=== PATIENT | female | born 1990 | race Two or more races ===

== ENCOUNTER 2018-12-20 22:08 | Observation (INO) | payer MEDICAID ==
[2018-12-20 22:34] LABS: BILIRUBIN,URINE NEGATIVE (NEG); CLARITY,URINE CLEAR; COLOR,URINE YELLOW; NITRITE,URINE NEGATIVE (NEG); PH,URINE 6.5; PROTEIN,URINE NEGATIVE (NEG-TRACE); UROBILINOGEN,URINE 0.2 mg/dL (0.2 mg/dL)
[2018-12-20 22:39] LABS: RBC,URINE TNTC /HPF (0-2); SQUAMOUS EPITHELIAL CELL,UR MOD /LPF
[2018-12-20 22:40] LABS: BACTERIA,URINE MODERATE /HPF (0-FEW)
[2018-12-21] MEDS: IV RINGERS,LACTATED 1000ML 1,000 ML IV SCH ×2 (02:26→04:04)
== END 2018-12-21 08:17 | disposition home or self-care (01) ==
LOC: 3 SO LND 22:08
PROVIDERS: ADMIT Obstetrics & Gynecology; ATTEND Obstetrics & Gynecology
DX: O62.9 Abnormality of forces of labor, unspecified (principal); O46.93 Antepartum hemorrhage, unspecified, third trimester; Z3A.38 38 weeks gestation of pregnancy
CPT/HCPCS: 81001; 87086; G0378; G0379; J7120; 87186

== ENCOUNTER 2018-12-29 06:06 | Inpatient (IN) | payer MEDICAID ==
[~2018-12-29] VITALS: Ht 160 cm; Wt 66.2 kg
[2018-12-29] MEDS ORDERED: OXYTOCIN 30 UNIT/500 ML PREMIX 500 ML IV PRN ×3 (06:15→11:45)
[2018-12-29] MEDS ORDERED: NALBUPHINE 10 MG/ML AMPUL. IV PRN (06:15)
[2018-12-29] MEDS ORDERED: 0.9 % SODIUM CHLORIDE 10 ML DISP.SYRIN. IV PRN ×2 (06:15→11:45)
[2018-12-29] MEDS ORDERED: ACETAMINOPHEN 325 MG TABLET. PO PRN ×2 (06:15→11:45)
[2018-12-29] MEDS ORDERED: LIDOCAINE 1% PF 30 ML VIAL. INJ PRN (06:15)
[2018-12-29] MEDS ORDERED: CITRIC ACID/SODIUM CITRATE 30 ML SOLUTION. PO PRN (06:15)
[2018-12-29] MEDS ORDERED: ONDANSETRON PF 4 MG/2 ML VIAL. IV PRN (06:15)
[2018-12-29] MEDS ORDERED: TERBUTALINE 1 MG/ML VIAL. SQ PRN (06:15)
[2018-12-29] MEDS ORDERED: MAG HYDROX/ALUMINUM HYD/SIMETH 30 ML ORAL.SUSP PO PRN ×2 (06:15→11:45)
[2018-12-29] MEDS ORDERED: fentaNYL PF VIAL 100 MCG/2 ML VIAL IV PRN ×3 (06:15)
[2018-12-29] MEDS ORDERED: PENICILLIN G K 5,000,000 UNIT in IV DEXTROSE 5% 100ML 100 ML IV ONE (06:30)
[2018-12-29 06:38] LABS: BILIRUBIN,URINE NEGATIVE (NEG); CLARITY,URINE CLEAR; COLOR,URINE YELLOW; NITRITE,URINE NEGATIVE (NEG); PROTEIN,URINE NEGATIVE (NEG-TRACE); UROBILINOGEN,URINE 0.2 mg/dL (0.2 mg/dL)
[2018-12-29] MEDS: IV RINGERS,LACTATED 1000ML 1,000 ML IV SCH ×2 (06:49→09:14)
[2018-12-29 06:50] LABS: BACTERIA,URINE MANY /HPF (0-FEW); SQUAMOUS EPITHELIAL CELL,UR MANY /LPF; WBC,URINE 20-40 /HPF (0-4)
[2018-12-29 07:04] LABS: BASO # 0.1 x10^3/uL (0.0-0.2); BASO % 1 % (0-3); EOS # 0.1 x10^3/uL (0.0-0.7); EOS % 1 % (0-3); HEMATOCRIT 37.3 % (36.0-47.0); HEMOGLOBIN 12.6 g/dL (12.0-15.5); LYMPH # 2.4 x10^3/uL (1.0-4.8); LYMPH % 22 % (24-48); MEAN CORPUSCULAR HEMOGLOBIN 29 pg (25-35); MEAN CORPUSCULAR HGB CONC 34 g/dL (31-37); MEAN CORPUSCULAR VOLUME 85 fL (79-100); MONO # 0.9 x10^3/uL (0.0-1.1); MONO % 8 % (0-9); NEUT # 7.5 x10^3/uL (1.8-7.7); NEUT % 68 % (31-73); PLATELET COUNT 212 x10^3/uL (140-400); RED BLOOD COUNT 4.37 x10^6/uL (3.50-5.40); RED CELL DISTRIBUTION WIDTH 15.7 % (11.5-14.5)
--- NOTE | 2018-12-29 09:16 | PDOC1 ---
OB - History Hx of Present Care: Good Care Ultrasounds: Normal mid trimester US Obstetrical Complications: None Medical Complications: None Past Family/Social History * Past Medical, Surgical, Family and Obstetric Histories reviewed from chart. Rubella: Immune RPR/VDRL: Negative GBS Status: Positive HBsAG: Negative OB - Chief Complaint & HPI Date of Admission: Date of Admission: Dec 29, 2018 at 06:06 Chief Complaint/History : 2 Para: 1 EGA: 39 Reason for admission: induction of labor Indication for induction: maternal distance Admission Nurse Assessment Rev: Yes OB - Admission Exam Physical Exam HEENT: Normal Heart: Regular Rate Lungs: Crackles Abdomen: Gravid, Non tender, Soft Extremities: Edema Reflexes: Normal Cervical Dilatation: 3cm Effacement: 75% Station: -3 Membranes: Intact Heart Rate: Normal Accelerations: Accelerations Present Decelerations: No decelerations Contractions on Admission: >10 Minutes Apart Intensity: Mild Text A: 39 wks IUP GBS positive Previous c/s desires P: Admit IOL pitocin. Start Pen G prophylaxis. BEATRICE PRICE Jr, MD Dec 29, 2018 09:16
[2018-12-29] MEDS ORDERED: L&D EPIDURAL SYRINGE 50 ML ONE (09:50)
[2018-12-29] MEDS ORDERED: ROPIVacaine 0.2% PF 10 ML VIAL. ONE ×2 (09:50→10:00)
[2018-12-29] MEDS ORDERED: L&D EPIDURAL 50 ML SYRINGE. ONE (10:00)
[2018-12-29] MEDS ORDERED: IV RINGERS,LACTATED 1000ML 1,000 ML IV SCH (10:12)
[2018-12-29] MEDS ORDERED: ROPIVacaine 0.2% IN 0.9%NACL PF 40 MG/20 ML DISP.SYRIN. EPID PRN (10:15)
[2018-12-29] MEDS ORDERED: NALOXONE 0.4 MG/ML VIAL. IV PRN (10:15)
[2018-12-29] MEDS ORDERED: L&D EPIDURAL SYRINGE 50 ML EPID PRN (10:15)
[2018-12-29] MEDS ORDERED: PENICILLIN G K 2,500,000 UNIT in IV DEXTROSE 5% 50 ML IV SCH (10:30)
--- NOTE | 2018-12-29 11:37 | PDOC ---
VAGINAL DELIVERY DATE DATE: 12/29/18 TIME: 11:36 : 2 Para: 2 EGA: 39 VAGINAL DELIVERY: VTX VACCUM ASSISTED: No PLACENTA: Spontaneous 8/9 SEX: Female WEIGHT Weight [6 lbs. 13 oz ] Nuchal Cord: Yes, Times 1 Amniotic Fluid: Clear PAIN: Epidural EPISIOTOMY: No EXTENSION: Yes (2nd degree midline laceration) REPAIRED WITH 2-0 vicryl EBL 300 ml COMPLICATIONS none CONDITION pt. stable Signs of Intrauterine Infectio: None Shoulder Dystocia: No BEATRICE PRICE Jr, MD Dec 29, 2018 11:37
[2018-12-29] MEDS ORDERED: BENZOCAINE 20% TOPICAL AEROSOL SPRAY 57GM CAN. TP PRN (11:45)
[2018-12-29] MEDS ORDERED: MMR per PROTOCOL. MC PRN (11:45)
[2018-12-29] MEDS ORDERED: PHENYLEPH/MINERAL OIL/PETROLAT RECTAL OINTMENT TUBE. RC PRN (11:45)
[2018-12-29] MEDS ORDERED: DOCUSATE SODIUM 100 MG CAPSULE. PO PRN (11:45)
[2018-12-29] MEDS ORDERED: oxyCODONE/APAP 5/325 1 TAB TABLET PO PRN (11:45)
[2018-12-29] MEDS ORDERED: IBUPROFEN 400 MG TABLET. PO PRN (11:45)
[2018-12-29] MEDS ORDERED: diphenhydrAMINE HCL 25 MG CAPSULE PO PRN (11:45)
[2018-12-29] MEDS ORDERED: SIMETHICONE 80 MG TAB.CHEW PO PRN (11:45)
[2018-12-29] MEDS ORDERED: HYDROCORTISONE 1% TOPICAL OINTMENT 30GM TUBE. TP PRN (11:45)
[2018-12-29] MEDS ORDERED: MAGNESIUM HYDROXIDE 2,400 MG/30 ML ORAL.SUSP. PO PRN (11:45)
[2018-12-29] MEDS ORDERED: ZOLPIDEM 5 MG TABLET. PO PRN (11:45)
[2018-12-29] MEDS: IBUPROFEN 400 MG TABLET. PO PRN (14:02)
[2018-12-29 15:07] VITALS: BP 116/72
[2018-12-29] MEDS ORDERED: DIPHTH,PERTUSS(ACELL),TET TOX 0.5 ML DISP.SYRIN. VAX IM ONE (16:30)
[2018-12-29 17:07] VITALS: BP 110/68
[2018-12-29] MEDS ORDERED: BENZOCAINE/MENTHOL LOZENGE. PO PRN (21:00)
[2018-12-29 21:05] VITALS: BP 105/75
[2018-12-30] MEDS: IBUPROFEN 400 MG TABLET. PO PRN ×3 (00:51→19:46)
[2018-12-30 01:05] VITALS: BP 108/70
[2018-12-30 05:11] LABS: BASO # 0.1 x10^3/uL (0.0-0.2); BASO % 1 % (0-3); EOS # 0.1 x10^3/uL (0.0-0.7); EOS % 1 % (0-3); HEMATOCRIT 35.8 % (36.0-47.0); HEMOGLOBIN 11.9 g/dL (12.0-15.5); LYMPH # 3.5 x10^3/uL (1.0-4.8); LYMPH % 26 % (24-48); MEAN CORPUSCULAR HEMOGLOBIN 29 pg (25-35); MEAN CORPUSCULAR HGB CONC 33 g/dL (31-37); MEAN CORPUSCULAR VOLUME 87 fL (79-100); MONO # 1.1 x10^3/uL (0.0-1.1); MONO % 8 % (0-9); NEUT # 8.6 x10^3/uL (1.8-7.7); NEUT % 64 % (31-73); PLATELET COUNT 204 x10^3/uL (140-400); RED BLOOD COUNT 4.13 x10^6/uL (3.50-5.40); RED CELL DISTRIBUTION WIDTH 15.7 % (11.5-14.5); WHITE BLOOD COUNT 13.3 x10^3/uL (4.0-11.0)
[2018-12-30 06:26] VITALS: BP 106/71
[2018-12-30] MEDS ORDERED: FERROUS SULFATE 325 MG TABLET. PO SCH (08:00)
[2018-12-30] MEDS ORDERED: FLU VAX QS 2019-20 (36MOS+)/PF 0.5 ML SYRINGE. VAX IM ONE (10:00)
[2018-12-30 14:05] VITALS: BP 112/62
--- NOTE | 2018-12-30 15:58 | PDOC ---
OB Progress Note Date of Service 12/30/18 Time of Evaluation 1555 Notes Pt. feeling well. No complaints. Lab Laboratory Tests Test 12/29/18 06:28 12/29/18 06:47 12/30/18 04:00 Urine Collection Type Unknown Urine Color Yellow Urine Clarity Clear Urine pH 7.0 Urine Specific [place] 1.010 Urine Protein Negative mg/dL (NEG-TRACE) Urine Glucose (UA) Negative mg/dL (NEG) Urine Ketones (Stick) Negative mg/dL (NEG) Urine Blood Moderate (NEG) Urine Nitrite Negative (NEG) Urine Bilirubin Negative (NEG) Urine Urobilinogen Dipstick 0.2 mg/dL (0.2 mg/dL) Urine Leukocyte Esterase Moderate (NEG) Urine RBC 3-5 /HPF (0-2) Urine WBC 20-40 /HPF (0-4) Urine Squamous Epithelial Cells Many /LPF Urine Bacteria Many /HPF (0-FEW) Urine Mucus Slight /LPF White Blood Count 11.0 x10^3/uL (4.0-11.0) 13.3 x10^3/uL (4.0-11.0) Red Blood Count 4.37 x10^6/uL (3.50-5.40) 4.13 x10^6/uL (3.50-5.40) Hemoglobin 12.6 g/dL (12.0-15.5) 11.9 g/dL (12.0-15.5) Hematocrit 37.3 % (36.0-47.0) 35.8 % (36.0-47.0) Mean Corpuscular Volume 85 fL (79-100) 87 fL (79-100) Mean Corpuscular Hemoglobin 29 pg (25-35) 29 pg (25-35) Mean Corpuscular Hemoglobin Concent 34 g/dL (31-37) 33 g/dL (31-37) Red Cell Distribution Width 15.7 % (11.5-14.5) 15.7 % (11.5-14.5) Platelet Count 212 x10^3/uL (140-400) 204 x10^3/uL (140-400) Neutrophils (%) (Auto) 68 % (31-73) 64 % (31-73) Lymphocytes (%) (Auto) 22 % (24-48) 26 % (24-48) Monocytes (%) (Auto) 8 % (0-9) 8 % (0-9) Eosinophils (%) (Auto) 1 % (0-3) 1 % (0-3) Basophils (%) (Auto) 1 % (0-3) 1 % (0-3) Neutrophils # (Auto) 7.5 x10^3/uL (1.8-7.7) 8.6 x10^3/uL (1.8-7.7) Lymphocytes # (Auto) 2.4 x10^3/uL (1.0-4.8) 3.5 x10^3/uL (1.0-4.8) Monocytes # (Auto) 0.9 x10^3/uL (0.0-1.1) 1.1 x10^3/uL (0.0-1.1) Eosinophils # (Auto) 0.1 x10^3/uL (0.0-0.7) 0.1 x10^3/uL (0.0-0.7) Basophils # (Auto) 0.1 x10^3/uL (0.0-0.2) 0.1 x10^3/uL (0.0-0.2) Treponema pallidum Antibody Nonreactive (Nonreactive) Hepatitis B Surface Antigen Nonreactive (Nonreactive) Laboratory Tests Test 12/30/18 04:00 White Blood Count 13.3 x10^3/uL (4.0-11.0) Red Blood Count 4.13 x10^6/uL (3.50-5.40) Hemoglobin 11.9 g/dL (12.0-15.5) Hematocrit 35.8 % (36.0-47.0) Mean Corpuscular Volume 87 fL (79-100) Mean Corpuscular Hemoglobin 29 pg (25-35) Mean Corpuscular Hemoglobin Concent 33 g/dL (31-37) Red Cell Distribution Width 15.7 % (11.5-14.5) Platelet Count 204 x10^3/uL (140-400) Neutrophils (%) (Auto) 64 % (31-73) Lymphocytes (%) (Auto) 26 % (24-48) Monocytes (%) (Auto) 8 % (0-9) Eosinophils (%) (Auto) 1 % (0-3) Basophils (%) (Auto) 1 % (0-3) Neutrophils # (Auto) 8.6 x10^3/uL (1.8-7.7) Lymphocytes # (Auto) 3.5 x10^3/uL (1.0-4.8) Monocytes # (Auto) 1.1 x10^3/uL (0.0-1.1) Eosinophils # (Auto) 0.1 x10^3/uL (0.0-0.7) Basophils # (Auto) 0.1 x10^3/uL (0.0-0.2) Medications Current Medications Sodium Chloride (Normal Saline Flush) 3 ml QSHIFT PRN IV AFTER MEDS AND BLOOD DRAWS; Start 12/29/18 at 06:15; Stop 12/29/18 at 11:45; Status DC Ringer's Solution 1,000 ml @ 125 mls/hr Q8H IV Last administered on 12/29/18at 09:14; Start 12/29/18 at 06:15; Stop 12/29/18 at 15:01; Status DC Nalbuphine HCl (Nubain) 10 mg PRN Q1HR PRN IV Severe labor pain; Start 12/29/18 at 06:15; Stop 12/29/18 at 15:01; Status DC Fentanyl Citrate (Fentanyl 2ml Vial) 50 mcg PRN Q10MIN PRN IV Labor pain; Start 12/29/18 at 06:15; Stop 12/29/18 at 15:01; Status DC Fentanyl Citrate (Fentanyl 2ml Vial) 75 mcg PRN Q10MIN PRN IV Labor pain; Start 12/29/18 at 06:15; Stop 12/29/18 at 15:01; Status DC Fentanyl Citrate (Fentanyl 2ml Vial) 100 mcg PRN Q10MIN PRN IV Labor pain; Start 12/29/18 at 06:15; Stop 12/29/18 at 15:01; Status DC Acetaminophen (Tylenol) 650 mg PRN Q6HRS PRN PO MILD PAIN / TEMP; Start 12/29/18 at 06:15; Stop 12/29/18 at 11:45; Status DC Ondansetron HCl (Zofran) 4 mg PRN Q4HRS PRN IV NAUSEA/VOMITING; Start 12/29/18 at 06:15; Stop 12/29/18 at 15:01; Status DC Al Hydroxide/Mg Hydroxide (Mylanta Plus Xs) 30 ml PRN Q4HRS PRN PO HEARTBURN / GAS; Start 12/29/18 at 06:15 Citric Acid/ Sodium Citrate (Bicitra) 30 ml 1X PRN PRN PO DYSPEPSIA; Start 12/29/18 at 06:15; Stop 12/29/18 at 15:01; Status DC Terbutaline Sulfate (Brethine) 0.25 mg 1X PRN PRN SQ SEE COMMENTS; Start 12/29/18 at 06:15; Stop 12/29/18 at 15:01; Status DC Lidocaine HCl (Xylocaine 1% Pf 30ml Vial) 30 ml 1X PRN PRN INJ SEE COMMENTS; Start 12/29/18 at 06:15; Stop 12/29/18 at 15:01; Status DC Oxytocin/Sodium Chloride 500 ml @ 0 mls/hr CONT PRN IV SEE I/O RECORD Last administered on 12/29/18at 07:25; Start 12/29/18 at 06:15; Stop 12/29/18 at 15:01; Status DC Oxytocin/Sodium Chloride 500 ml @ 0 mls/hr CONT PRN PRN IV Post delivery bleeding; Start 12/29/18 at 06:15; Stop 12/29/18 at 15:01; Status DC Ibuprofen (Motrin) 800 mg PRN Q6HRS PRN PO PAIN Last administered on 12/30/18at 12:26; Start 12/29/18 at 06:15 Penicillin G Potassium [id number] unit/Dextrose 100 ml @ 100 mls/hr 1X ONCE IV Last administered on 12/29/18at 07:23; Start 12/29/18 at 06:30; Stop 12/29/18 at 15:02; Status DC Penicillin G Potassium [id number] unit/Dextrose 50 ml @ 100 mls/hr Q4H IV ; Start 12/29/18 at 10:30; Stop 12/29/18 at 15:01; Status DC Ropivacaine (Naropin 0.2%) 10 ml STK-MED ONCE .ROUTE ; Start 12/29/18 at 09:50; Stop 12/29/18 at 09:51; Status DC Fentanyl Citrate 50 ml @ As Directed STK-MED ONCE .ROUTE ; Start 12/29/18 at 09:50; Stop 12/29/18 at 09:51; Status DC Ringer's Solution 1,000 ml @ 1,000 mls/hr Q1H IV ; Start 12/29/18 at 10:12; Stop 12/29/18 at 11:11; Status DC Naloxone HCl (Narcan) 0.04 mg PRN Q1MIN PRN IV SEE COMMENTS; Start 12/29/18 at 10:15; Stop 12/29/18 at 15:02; Status DC Fentanyl Citrate 50 ml @ 14 mls/hr CONT PRN EPID PAIN; Start 12/29/18 at 10:15; Stop 12/29/18 at 15:02; Status DC Ropivacaine/ Sodium Chloride (ROPIVacaine 0.2% - 0.9%NACL PF) 40 mg 1X PRN PRN EPID PER ANESTHESIA; Start 12/29/18 at 10:15; Stop 12/29/18 at 15:02; Status DC Sodium Chloride (Normal Saline Flush) 10 ml QSHIFT PRN IV AFTER MEDS AND BLOOD DRAWS; Start 12/29/18 at 11:45; Stop 12/29/18 at 15:02; Status DC Oxytocin/Sodium Chloride 500 ml @ 62.5 mls/hr CONT PRN IV SEE I/O RECORD; Start 12/29/18 at 11:45; Stop 12/29/18 at 15:02; Status DC Acetaminophen (Tylenol) 650 mg PRN Q6HRS PRN PO MILD PAIN / TEMP Last admi nistered on 12/29/18at 21:14; Start 12/29/18 at 11:45 Ibuprofen (Motrin) 800 mg PRN Q8HRS PRN PO INFLAMMATION/PAIN PREVENTION; Start 12/29/18 at 11:45 Docusate Sodium (Colace) 100 mg PRN BID PRN PO CONSTIPATION; Start 12/29/18 at 11:45 Magnesium Hydroxide (Milk Of Magnesia) 2,400 mg PRN DAILY PRN PO CONSTIPATION; Start 12/29/18 at 11:45 Al Hydroxide/Mg Hydroxide (Mylanta Plus Xs) 30 ml PRN Q4HRS PRN PO HEARTBURN / GAS; Start 12/29/18 at 11:45 Simethicone (Gas-X) 80 mg PRN AFTMEALHC PRN PO GAS / BLOATING; Start 12/29/18 at 11:45 Diphenhydramine HCl (Benadryl) 25 mg PRN Q6HRS PRN PO ITCHING; Start 12/29/18 at 11:45 Benzocaine (Americaine) 1 spray PRN QID PRN TP TOPICAL PAIN; Start 12/29/18 at 11:45 Phenyleph/Shark Oil/Min Oil/Petrol (Preparation H) 1 nikki PRN QID PRN RC RECTAL PAIN; Start 12/29/18 at 11:45 Hydrocortisone (Cortaid) 1 nikki PRN QID PRN TP PERINEAL PAIN; Start 12/29/18 at 11:45 Ferrous Sulfate (Feosol) 325 mg BIDWMEALS PO ; Start 12/30/18 at 08:00; Stop 12/30/18 at 07:08; Status DC Zolpidem Tartrate (Ambien) 5 mg PRN QHS PRN PO INSOMNIA, MAY REPEAT X1; Start 12/29/18 at 11:45 Info (Do NOT chart on this placeholder) 1 ea 1X PRN PRN MC SEE COMMENTS; Start 12/29/18 at 11:45 Info (Do NOT chart on this placeholder) 1 ea 1X PRN PRN MC SEE COMMENTS; Start 12/29/18 at 11:45; Stop 12/29/18 at 15:02; Status DC Oxycodone/ Acetaminophen (Percocet 5/325) 2 tab PRN Q4HRS PRN PO MODERATE PAIN, SEVERE PAIN; Start 12/29/18 at 11:45 Diphtheria/ Tetanus/Acell Pertussis (Boostrix) 0.5 ml ONCE ONCE VAX IM ; Start 12/29/18 at 16:30; Stop 12/29/18 at 16:31; Status DC Throat Lozenges (Cepacol Sore Throat Lozenge) 1 indu PRN Q2HRS PRN PO SORE THROAT Last administered on 12/29/18at 21:14; Start 12/29/18 at 21:00 Fentanyl Citrate (Aflwxsey-Ebkli-UA 3 Mcg-0.1%) 50 ml STK-MED ONCE .ROUTE ; Start 12/29/18 at 10:00; Stop 12/30/18 at 08:17; Status DC Ropivacaine (Naropin 0.2%) 10 ml STK-MED ONCE .ROUTE ; Start 12/29/18 at 10:00; Stop 12/30/18 at 08:17; Status DC Influenza Virus Vaccine Quadrival (Afluria Quad 2018- (3yr Up) Syringe) 0.5 ml ONCE ONCE VAX IM ; Start 12/30/18 at 10:00; Stop 12/30/18 at 10:01; Status DC Exam Abd: soft, non tender, fundus firm Assessment PPD#1 s/p Plan of Care: Continue current Tx, Mgmt BEATRICE PRICE Jr, MD Dec 30, 2018 15:58
[2018-12-30 19:51] VITALS: BP 108/66
[2018-12-30 23:34] VITALS: BP 112/66
[2018-12-31 06:50] VITALS: BP 117/75
[2018-12-31 11:13] VITALS: BP 126/94
[2018-12-31] MEDS: IBUPROFEN 400 MG TABLET. PO PRN (11:24)
--- NOTE | 2018-12-31 13:30 | NUR ---
Discharge Note: ANDREIA CASTILLO HODGES Discharge instructions and discharge home medications reviewed with Patient and a copy given. All questions have been answered and understanding verbalized. Pt. discharged home with self-care via WC to private vehicle. Pt. , daughter, and with her at time of discharge.
--- NOTE | 2019-01-11 20:26 | PDOC3 ---
OB DISCHARGE SUMMARY DATE OF ADMISSION: 12/29/18 DATE OF DISCHARGE: 12/31/18 REASON FOR ADMISSION: Induction of labor PROCEDURES: None INTRAPARTUM PROCEDURES: Spontanous Vag Deliv PROCEDURES: None OPERATIONS: None DISCHARGE DIAGNOSIS: Term Delivered DISCHARGE INFORMATION: Activity, Diet HOSPITAL COURSE Unremarkable CONDITION AT DISCHARGE Stable ESPERANZA PONCE MD Jan 11, 2019 20:26
== END 2018-12-31 13:13 | disposition home or self-care (01) | DRG 807 ==
LOC: 3 SO LND 06:06 → 3 NORTH 14:21
PROVIDERS: ADMIT Obstetrics & Gynecology; ATTEND Obstetrics & Gynecology
PROC: 10E0XZZ Delivery of Products of Conception, External Approach (ICD-10-PCS; principal; 2018-12-29)
PROC: 00HU33Z Insertion of Infusion Device into Spinal Canal, Percutaneous Approach (ICD-10-PCS; 2018-12-29)
PROC: 3E0R3BZ Introduction of Anesthetic Agent into Spinal Canal, Percutaneous Approach (ICD-10-PCS; 2018-12-29)
DX: O99.824 Streptococcus B carrier state complicating childbirth (principal); Z37.0 Single live birth; O34.219 Maternal care for unspecified type scar from previous cesarean delivery; O69.81X0 Labor and delivery complicated by cord around neck, without compression, not applicable or unspecified; Z3A.39 39 weeks gestation of pregnancy
CPT/HCPCS: 36415; 81001; 85025; 86592; 86850; 86900; 86901; 86920; 87086; 87340; 90471; 90686; J2540; J2590; J2795; J7120; G0378